=== PATIENT | female | born 1990 | race American Indian/Alaskan Native ===

== ENCOUNTER 2018-11-11 10:53 | Outpatient (CLI) | payer MEDICAID ==
[2018-11-11] MEDS ORDERED: LACTATED RINGERS 1,000 ML IV ONE (10:56)
[2018-11-11 11:42] VITALS: BP 112/76
[2018-11-11 11:51] LABS: Bacteria,Urine 1+ /HPF (Negative); Bilirubin,Urine NEG (Negative); Blood,Urine NEG (Negative); Color,Urine Yellow (Yellow); Mucus,Urine 3+ /HPF
[2018-11-11] MEDS ORDERED: FLAGYL PO ONE (12:00)
== END 2018-11-11 13:12 | disposition home or self-care (01) ==
LOC: TRG 10:53
PROVIDERS: ATTEND Obstetrics & Gynecology
DX: O47.02 False labor before 37 completed weeks of gestation, second trimester (principal); O99.512 Diseases of the respiratory system complicating pregnancy, second trimester; J45.909 Unspecified asthma, uncomplicated; Z3A.23 23 weeks gestation of pregnancy
CPT/HCPCS: 36415; 59025; 81001; 82731

== ENCOUNTER 2018-12-19 12:07 | Outpatient (CLI) | payer MEDICAID ==
[2018-12-19] MEDS ORDERED: LACTATED RINGERS 500 ML IV ONE (12:22)
[2018-12-19 12:50] VITALS: BP 107/61
[2018-12-19 13:22] LABS: Bilirubin,Urine NEG (Negative); Color,Urine Yellow (Yellow)
[2018-12-19 13:23] LABS: Blood,Urine NEG (Negative); Mucus,Urine 1+ /HPF; Protein,Urine <15 mg/dL mg/dL (Negative)
[2018-12-19] MEDS ORDERED: LACTATED RINGERS 1,000 ML ONE (15:05)
[2018-12-19] MEDS ORDERED: MACROBID PO SCH (15:30)
== END 2018-12-19 15:55 | disposition home or self-care (01) ==
LOC: TRG 12:07
PROVIDERS: ATTEND Obstetrics & Gynecology
DX: O62.9 Abnormality of forces of labor, unspecified (principal); O99.513 Diseases of the respiratory system complicating pregnancy, third trimester; J45.909 Unspecified asthma, uncomplicated; Z3A.28 28 weeks gestation of pregnancy
CPT/HCPCS: 81001; J7120; 59025

== ENCOUNTER 2019-02-22 02:08 | Inpatient (IN) | payer MEDICAID ==
[2019-02-22] MEDS ORDERED: LACTATED RINGERS 1,000 ML ONE (02:34)
[2019-02-22] MEDS ORDERED: PITOCin/NS 20 UNIT/1000ML DRIP 20,000 MILLIUNITS/1,000 ML BAG IV ONE (03:08)
[2019-02-22] MEDS ORDERED: XYLOCAINE 2% INFILTRATI ONE ×2 (03:09→04:05)
[2019-02-22] MEDS ORDERED: MARCAINE 0.25% INFILTRATI ONE (03:28)
[2019-02-22 03:42] LABS: Hematocrit 34.7 % (30.3-42.9); Hemoglobin 11.9 gm/dl (10.1-14.3); Mean Corpuscular HGB Conc 34 % (30-34); Mean Corpuscular Volume 85 fl (79-97); Platelet Count 303 K/mm3 (140-440); Red Cell Distribution Width 14.5 % (13.2-15.2)
[2019-02-22] MEDS ORDERED: NARCAN 0.4 MG/1 ML IV PRN (04:05)
[2019-02-22] MEDS ORDERED: MINERAL OIL PO PRN (04:05)
[2019-02-22] MEDS ORDERED: AMPICILLIN/NS 2 GM/100 ML 2 GM/100 ML BAG IV ONE (04:05)
[2019-02-22] MEDS ORDERED: BRETHINE SUB-Q PRN (04:05)
[2019-02-22] MEDS ORDERED: BRETHINE IVP PRN (04:05)
--- NOTE | 2019-02-22 04:12 | History and Physical Report ---
History of Present Illness Date of examination: 02/22/19 Date of admission: 02/22/19 02:18 Chief complaint: Intense Labor Pains History of present illness: No records available; states course was uncomplicated. Past History Past Medical History: no pertinent history Past Surgical History: no surgical history Social history: no significant social history - Obstetrical History Expected Date of Delivery: 03/08/19 Actual Gestation: 38 Week(s) 0 Day(s) : 2 Para: 1 Hx # Term Pregnancies: 1 Number of Living Children: 1 #1 Infant Gender: Male year: 2,014 Birthweight: 3.203 kg Method of Delivery: Vaginal Medications and Allergies Allergies Allergy/AdvReac Type Severity Reaction Status Date / Time No Known Allergies Allergy Unverified 12/28/14 14:25 Home Medications Medication Instructions Recorded Confirmed Last Taken Type Vits96/Iron Fum/Folic 1 tab PO DAILY 03/22/14 02/22/19 02/21/19 10:00 History [ Tablet] Nitrofurantoin [place]/M-Cryst 100 mg PO Q12HR 7 Days #14 capsule 12/19/18 02/22/19 Unknown Rx [Macrobid CAP] - Vital Signs Vital signs: Vital Signs Pulse BP 72 131/75 02/22/19 02:23 02/22/19 02:23 Temp Pulse Resp BP Pulse Ox 98.1 F 88 18 136/86 99 02/22/19 02:44 02/22/19 04:06 02/22/19 02:44 02/22/19 04:06 02/22/19 04:04 - Physical Exam Breasts: Positive: normal Cardiovascular: Regular rate Lungs: Positive: Clear to auscultation, Normal air movement Abdomen: Positive: normal appearance, soft, normal bowel sounds Genitourinary (Female): Positive: normal external genitalia, normal perenium Uterus: Positive: enlarged Anus/Rectum: Positive: normal perianal skin Extremities: Positive: normal - Obstetrical FHR: category 1 Uterine Contraction Monitor Mode: External Cervical Dilatation: 6 Cervical Effacement Percentage: 100 Uterine Contraction Pattern: Regular Uterine Tone Measurement Phase: Resting Uterine Contraction Intensity: Moderate Results Result Diagrams: 02/22/19 02:35 Abnormal lab results 02/22/19 Range/Units 02:35 WBC 13.0 H (4.5-11.0) K/mm3 All other labs normal. Assessment and Plan A: IUP @ 38 Weeks Category I Tracing Active Labor GBS Unknown P: Admit to L&D per Routine Orders Epidural Anesthesia GBS Prophylaxis
[2019-02-22] MEDS ORDERED: NARCAN 2 MG/2 ML IV PRN (04:22)
--- NOTE | 2019-02-22 04:24 | Anesthesia Consultation ---
Anesthesia Consult and Med Hx Date of service: 02/22/19 - Airway Anesthetic Teeth Evaluation: Good ROM Head & Neck: Adequate Mental/Hyoid Distance: Adequate Mallampati Class: Class II Intubation Access Assessment: Good - Pulmonary Exam CTA: Yes - Cardiac Exam Cardiac Exam: RRR - Pre-Operative Health Status ASA Pre-Surgery Classification: ASA2 Proposed Anesthetic Plan: Epidural - Pulmonary Hx Asthma: Yes (as a child) COPD: No Hx Pneumonia: No - Cardiovascular System Hx Hypertension: No - Central Nervous System Hx Seizures: No Hx Psychiatric Problems: No - Endocrine Hx Renal Disease: No Hx End Stage Renal Disease: No Hx Hypothyroidism: No Hx Hyperthyroidism: No - Hematic Hx Anemia: No Hx Sickle Cell Disease: No - Other Systems Hx Alcohol Use: No
[2019-02-22] MEDS ORDERED: TUCKS PAD TP PRN (04:47)
[2019-02-22] MEDS ORDERED: LANSINOH TP PRN (04:47)
[2019-02-22] MEDS ORDERED: BENADRYL PO PRN (04:47)
[2019-02-22] MEDS ORDERED: MILK OF MAGNESIA PO PRN (04:47)
[2019-02-22] MEDS ORDERED: NORCO 5/325 PO PRN (04:47)
--- NOTE | 2019-02-22 04:53 | Procedure Note ---
OB Delivery Note - Delivery Date of Delivery: 02/22/19 (0431) Surgeon: SKYLAR JONES Estimated blood loss: 200cc - Vaginal Delivery presentation: vertex Delivery position: OA Intrapartum events: none Delivery induction: none Delivery monitor: external FHT, external uterine Route of delivery: Delivery placenta: spontaneous Delivery cord: 3 umbilical vessels Episiotomy: none Delivery laceration: none Anesthesia: none Delivery comments: of a live 6'12 male over a intact perineum under epidural anesthesia with Apgars of 8 and 9 at 0431 on 02/22/2019. Infant directly to maternal abd/chest, skin to skin contact. Spontaneous delivery of placenta complete and intact with [place] side presenting at 0438. Fundus is firm and midline located 4 below the U. Lochia is scant. Delayed cord clamping and cutting; cord cut by the maternal grandfather. Cord blood collected; placenta discarded.
[2019-02-22] MEDS ORDERED: SODIUM CHLORIDE FLUSH SYRINGE 10 ML IV PRN (05:00)
[2019-02-22] MEDS ORDERED: PITOCin/NS 20 UNIT/1000ML DRIP 20 UNITS/1,000 ML BAG IV SCH (05:00)
[2019-02-22] MEDS ORDERED: fentaNYL-BUPIV 2 MCG/ML-0.125% 200 MCG/100 ML BAG EPIDURAL SCH (05:00)
[2019-02-22] MEDS ORDERED: LACTATED RINGERS 1,000 ML IV SCH (05:00)
[2019-02-22] MEDS ORDERED: PITOCin/NS 30 UNIT/500ML 30 UNITS/500 ML BAG IV SCH (05:00)
[2019-02-22] MEDS: IBUPROFEN PO SCH ×3 (06:45→17:20)
[2019-02-22] MEDS ORDERED: AMPICILLIN/NS 1 GM/50 ML 1 GM/50 ML BAG IV SCH (08:07)
[2019-02-22 16:04] LABS: Hemoglobin 10.3 gm/dl (10.1-14.3)
[2019-02-23] MEDS: IBUPROFEN PO SCH ×3 (00:11→14:56)
--- NOTE | 2019-02-23 06:28 | Progress Note ---
Assessment and Plan A: PPD#1 s/p Bottlefeeding Stable P: Routine PP orders Anticipate discharge home this pm Subjective - Subjective Date of service: 02/23/19 Principal diagnosis: PPD#1 s/p 02/21/19 @ 0431 Interval history: See H&P and delivery note Patient reports: appetite normal, voiding normally, pain well controlled, flatus, ambulating normally, no bowel movement [place]: doing well, bottle feeding Objective - Vital Signs Latest vital signs: Vital Signs Temp Pulse Resp BP Pulse Ox 02/23/19 05:56 18 02/23/19 00:48 98.3 F 20 132/81 02/23/19 00:11 18 02/22/19 19:51 98.1 F 79 20 127/81 98 02/22/19 17:12 98.4 F 67 18 127/88 99 02/22/19 12:26 98.1 F 70 18 124/84 97 02/22/19 06:40 74 97 02/22/19 06:35 89 98 Intake and Output 02/22/19 02/22/19 02/23/19 15:59 23:59 07:59 Intake Total 480 720 Output Total 400 700 Balance 80 20 Intake: Oral 480 Intake, Free Water 480 240 Output: Urine 400 700 Void 400 700 Other: Total, Intake Amount 480 Total, Output Amount 400 700 # Voids Void 1 1 - Exam Breasts: Present: normal Cardiovascular: Present: Regular rate, Normal S1, Normal S2, No murmurs Lungs: Present: Clear to auscultation, Normal air movement Abdomen: Present: normal appearance, soft, normal bowel sounds. Absent: distention Vulva: both: normal Uterus: Present: firm, fundal height at umbilicus Extremities: Present: normal Deep Tendon Reflex Grade: Normal +2 - Labs Labs: Abnormal lab results 02/22/19 Range/Units 15:53 Hct 30.0 L (30.3-42.9) %
--- NOTE | 2019-02-23 06:29 | Discharge Summary ---
Providers - Providers Date of Admission: 02/22/19 02:18 Date of discharge: 02/23/19 Attending physician: SARAH HINKLE MD Primary care physician: SARAH HINKLE MD Hospitalization Reason for admission: active labor, IUP at term Delivery: Procedure details: See delivery note Episiotomy: none Laceration: none Other procedures: none complications: none Discharge diagnosis: IUP at term delivered [place] baby: male Condition at discharge: Good Disposition: DC-01 TO HOME OR SELFCARE Plan - Provider Discharge Summary Activity: routine, no sex for 6 weeks, no heavy lifting 4 weeks, no strenuous exercise Diet: routine Instructions: routine Additional instructions: [] Smoking cessation referral if applicable(refer to patient education folder for contact #) [] Refer to [facility]'s [facility] Booklet Call your doctor immediately for: * Fever > 100.5 * Heavy vaginal bleeding ( >1 pad per hour) * Severe persistent headache * Shortness of breath * Reddened, hot, painful area to leg or breast * Drainage or odor from incision. * Keep incision clean and dry at all times and follow doctor's instructions regarding bathing/showering - Follow up plan Follow up: SARAH HINKLE MD [Primary Care Provider] - 6 Weeks
[2019-02-24] MEDS: IBUPROFEN PO SCH ×3 (00:09→12:17)
[2019-02-24 14:59] VITALS: BP 140/92
== END 2019-02-24 15:20 | disposition home or self-care (01) | DRG 775 ==
LOC: TRG 02:08 → LD 02:18 → OB 07:03
PROVIDERS: ADMIT Obstetrics & Gynecology; ATTEND Obstetrics & Gynecology
PROC: 10E0XZZ Delivery of Products of Conception, External Approach (ICD-10-PCS; principal; 2019-02-22)
PROC: 3E0R3BZ Introduction of Anesthetic Agent into Spinal Canal, Percutaneous Approach (ICD-10-PCS; 2019-02-22)
PROC: 00HU33Z Insertion of Infusion Device into Spinal Canal, Percutaneous Approach (ICD-10-PCS; 2019-02-22)
DX: O99.52 Diseases of the respiratory system complicating childbirth (principal); Z3A.38 38 weeks gestation of pregnancy; Z37.0 Single live birth; J45.909 Unspecified asthma, uncomplicated
CPT/HCPCS: 36415; 85014; 85018; 85027; 86592; 86850; 86900; 86901; G0378; J2590; J7120